=== PATIENT | female | born 1980 | race Caucasian/White ===

== ENCOUNTER 2020-03-05 17:52 | Emergency (ER) | payer BC, OTHER ==
--- NOTE | 2020-03-05 18:26 | ERPHSYRPT ---
- History of Present Illness Source: patient Exam Limitations: no limitations Patient Subjective Stated Complaint: Pt states that she was lifting her 100# grandma and then later she found bloody discharge in her underwear, pt states that she has been cramping since she found out that she was Triage Nursing Assessment: Pt brought self to the ER, vitals wnl, pulses normal, rates cramping at 2/10, skin n/w/d, doesn't appear to be in any distress Physician History: Patient is a 39-year-old female G3, P2 at about 3 weeks gestation. Last menstrual period was February 10. home test which showed positive. Patient has been experiencing some cramping since testing positive but no vaginal bleeding. Today patient was lifting her grandmother and during this physical activity felt a little bit increase in cramping. Then she noticed some light vaginal spotting in her underwear. This progressed to darker blood but not much more bleeding. Patient is here for evaluation. Timing/Duration: today Activites at Onset: physical activity Quality: cramping Onset Location: pelvic pain Pain Radiation: none Severity of Pain-Max: mild Severity of Pain-Current: mild Prior abdominal problems: none Modifying Factors: Improves With: nothing Associated Symptoms: other (vaginal bleeding) Allergies/Adverse Reactions: No Known Drug Allergies Allergy (Verified 03/05/20 18:13) Travel Risk - International Travel Have you traveled outside of the country in past 3 weeks: No - Coronavirus Screening Are you exhibiting any of the following symptoms?: No Close contact with a COVID-19 positive Pt in past 14-21 Days: No - Review of Systems Constitutional: No Fever, No Chills Eyes: No Symptoms Ears, Nose, & Throat: No Symptoms Respiratory: No Cough, No Dyspnea Cardiac: No Chest Pain, No Edema, No Syncope Abdominal/Gastrointestinal: Abdominal Pain, No Nausea, No Vomiting, No Diarrhea Genitourinary Symptoms: Dysuria, , Vaginal Bleeding Musculoskeletal: No Back Pain, No Neck Pain Skin: No Rash Neurological: No Dizziness, No Focal Weakness, No Sensory Changes Psychological: No Symptoms Endocrine: No Symptoms All Other Systems: Reviewed and Negative - Past Medical History Neurological History: No Pertinent History Cardiac History: No Pertinent History Respiratory History: No Pertinent History Endocrine Medical History: No Pertinent History Musculoskeletal History: No Pertinent History GI Medical History: No Pertinent History History: No Pertinent History Female Reproductive Disorders: No Pertinent History - Past Surgical History Past Surgical History: Yes Female Surgical History: Section - Social History Smoking Status: Never smoker Exposure to second hand smoke: No Drug Use: none Patient Lives Alone: No - Female History Hx Last Menstrual Period: 02/11/2020 Hx Now: Yes - Nursing Vital Signs Nursing Vital Signs: Initial Vital Signs Temperature 98.1 F 03/05/20 18:01 Pulse Rate 99 H 03/05/20 18:01 Blood Pressure 141/86 03/05/20 18:01 O2 Sat by Pulse Oximetry 98 03/05/20 18:01 Pain Scale Pain Intensity 6 - Physical Exam General Appearance: no apparent distress, alert Eye Exam: PERRL/EOMI, eyes nml inspection Ears, Nose, Throat Exam: normal ENT inspection, TMs normal, pharynx normal, moist mucous membranes Neck Exam: normal inspection, non-tender, supple, full range of motion Respiratory Exam: normal breath sounds, lungs clear, No respiratory distress Cardiovascular Exam: regular rate/rhythm, normal heart sounds, normal peripheral pulses Gastrointestinal/Abdomen Exam: soft, No tenderness, No mass Pelvic Exam: deferred Back Exam: normal inspection, normal range of motion, No CVA tenderness, No vertebral tenderness Extremity Exam: normal inspection, normal range of motion, pelvis stable Neurologic Exam: alert, oriented x 3, cooperative, brine maker II-XII nml as tested, normal mood/affect, sensation nml, No motor deficits Skin Exam: normal color, warm, dry Lymphatic Exam: No adenopathy SpO2 Interpretation: normal SpO2: 98 - Course Nursing assessment & vital signs reviewed: Yes - Radiology Ultrasound Exam OB Ultrasound: IUP (6wks, NO adnexal mass, some CDS fluid, HR 140's), Other (prelim report by technologist.) Ordered Tests: Active Orders 24 hr Category Date Time Status OB TRANSVAGINAL [US] Routine Exams 03/05/20 22:06 Taken CBC W DIFF Stat Lab 03/05/20 19:00 Completed CMP Stat Lab 03/05/20 19:00 Completed HCG, Quantitative (Inhouse) Stat Lab 03/05/20 19:00 Completed HCG,QUALITATIVE URINE Stat Lab 03/05/20 18:01 Completed UA W/RFX UR CULTURE Stat Lab 03/05/20 18:01 Completed Lab/Rad Data: Laboratory Result Diagrams 03/05/20 19:00 03/05/20 19:00 Laboratory Results 03/05/20 03/05/20 03/05/20 Range/Units 19:00 19:00 19:00 WBC 10.6 H (4.0-10.5) K/mm3 RBC 4.29 (4.1-5.4) M/mm3 Hgb 11.3 L (12.0-16.0) gm/dl Hct 34.8 L (35-47) % MCV 81.1 (78-100) fl MCH 26.3 (26-32) pg MCHC 32.5 (32-36) g/dl RDW 15.8 H (11.5-14.0) % Plt Count 296 (150-450) K/mm3 MPV 10.4 (7.5-11.0) fl Gran % 76.4 H (36.0-66.0) % Eos # (Auto) 0.05 (0-0.5) Absolute Lymphs (auto) 1.75 (1.0-4.6) Absolute Monos (auto) 0.70 (0.0-1.3) Lymphocytes % 16.4 L (24.0-44.0) % Monocytes % 6.6 (0.0-12.0) % Eosinophils % 0.5 (0.00-5.0) % Basophils % 0.1 (0.0-0.4) % Absolute Granulocytes 8.13 H (1.4-6.9) Basophils # 0.01 (0-0.4) Sodium 134 L (137-145) mmol/L Potassium 3.5 (3.5-5.1) mmol/L Chloride 104 (98-107) mmol/L Carbon Dioxide 22 (22-30) mmol/L Anion Gap 12.5 (5-15) MEQ/L BUN 11 (7-17) mg/dL Creatinine 0.67 (0.52-1.04) mg/dL Estimated GFR > 60.0 ML/MIN Glucose 111 H (74-106) mg/dL Calcium 9.1 (8.4-10.2) mg/dL Total Bilirubin 0.10 L (0.2-1.3) mg/dL AST 26 (14-36) U/L ALT 26 (0-35) U/L Alkaline Phosphatase 64 (38-126) U/L Serum Total Protein 7.4 (6.3-8.2) g/dL Albumin 4.0 (3.5-5.0) g/dL Beta HCG, Quant 85017 mIU/ml Urine Color (YELLOW) Urine Appearance (CLEAR) Urine pH (5-6) Ur Specific [place] (1.005-1.025) Urine Protein (Negative) Urine Ketones (NEGATIVE) Urine Blood (0-5) Tung/ul Urine Nitrite (NEGATIVE) Urine Bilirubin (NEGATIVE) Urine Urobilinogen (0-1) mg/dL Ur Leukocyte Esterase (NEGATIVE) Urine WBC (Auto) (0-5) /HPF Urine RBC (Auto) (0-2) /HPF U Epithel Cells (Auto) (FEW) /HPF Urine Bacteria (Auto) (NEGATIVE) /HPF Urine Mucus (Auto) (NEGATIVE) /HPF Urine Culture Reflexed (NO) Urine Glucose (NEGATIVE) mg/dL Urine HCG, Qual (Negative) 03/05/20 03/05/20 Range/Units 18:01 18:01 WBC (4.0-10.5) K/mm3 RBC (4.1-5.4) M/mm3 Hgb (12.0-16.0) gm/dl Hct (35-47) % MCV (78-100) fl MCH (26-32) pg MCHC (32-36) g/dl RDW (11.5-14.0) % Plt Count (150-450) K/mm3 MPV (7.5-11.0) fl Gran % (36.0-66.0) % Eos # (Auto) (0-0.5) Absolute Lymphs (auto) (1.0-4.6) Absolute Monos (auto) (0.0-1.3) Lymphocytes % (24.0-44.0) % Monocytes % (0.0-12.0) % Eosinophils % (0.00-5.0) % Basophils % (0.0-0.4) % Absolute Granulocytes (1.4-6.9) Basophils # (0-0.4) Sodium (137-145) mmol/L Potassium (3.5-5.1) mmol/L Chloride (98-107) mmol/L Carbon Dioxide (22-30) mmol/L Anion Gap (5-15) MEQ/L BUN (7-17) mg/dL Creatinine (0.52-1.04) mg/dL Estimated GFR ML/MIN Glucose (74-106) mg/dL Calcium (8.4-10.2) mg/dL Total Bilirubin (0.2-1.3) mg/dL AST (14-36) U/L ALT (0-35) U/L Alkaline Phosphatase (38-126) U/L Serum Total Protein (6.3-8.2) g/dL Albumin (3.5-5.0) g/dL Beta HCG, Quant mIU/ml Urine Color STRAW (YELLOW) Urine Appearance CLEAR (CLEAR) Urine pH 6.0 (5-6) Ur Specific [place] 1.006 (1.005-1.025) Urine Protein NEGATIVE (Negative) Urine Ketones NEGATIVE (NEGATIVE) Urine Blood SMALL (0-5) Tung/ul Urine Nitrite NEGATIVE (NEGATIVE) Urine Bilirubin NEGATIVE (NEGATIVE) Urine Urobilinogen NEGATIVE (0-1) mg/dL Ur Leukocyte Esterase NEGATIVE (NEGATIVE) Urine WBC (Auto) NONE (0-5) /HPF Urine RBC (Auto) NONE (0-2) /HPF U Epithel Cells (Auto) RARE (FEW) /HPF Urine Bacteria (Auto) NONE (NEGATIVE) /HPF Urine Mucus (Auto) SLIGHT (NEGATIVE) /HPF Urine Culture Reflexed NO (NO) Urine Glucose NEGATIVE (NEGATIVE) mg/dL Urine HCG, Qual POSITIVE (Negative) - Progress Progress: improved Air Movement: good Progress Note: 03/05/20 22:07 No further events in the ER. Beta quant appropriate. Other labs within normal limits. OB ultrasound done which shows IUP 6 weeks gestation, no adnexal mass, some fluid in the cul-de-sac. DC patient with precautions. Blood Culture(s) Obtained: No Antibiotics given: No Counseled pt/family regarding: lab results, diagnosis, need for follow-up, rad results - Departure Departure Disposition: Home Clinical Impression: First trimester bleeding Condition: Stable Critical Care Time: No Referrals: DOCTOR,NO FAMILY [Primary Care Provider] - ABIMBOLA HARPER DO [ACTIVE STAFF] - Instructions: Bleeding With (DC) Additional Instructions: Monitor symptoms closely. Hydration. Rest. Follow-up with OB as soon as possible. Return to ER if worse.
[2020-03-05 18:42] LABS: Appearance CLEAR (CLEAR); Bilirubin NEGATIVE (NEGATIVE); Blood SMALL Ery/ul (0-5); Epithelial Cells RARE /HPF (FEW); Glucose NEGATIVE (NEGATIVE); Ketones NEGATIVE (NEGATIVE); Leukocyte Esterase NEGATIVE (NEGATIVE); Mucus SLIGHT /HPF (NEGATIVE); Nitrite NEGATIVE (NEGATIVE); Protein,Urine Dip NEGATIVE (Negative); Specific Gravity 1.006 (1.005-1.025); Urobilinogen NEGATIVE mg/dL (0-1)
[2020-03-05 19:07] LABS: Absolute Neutrophil Ct (ANC) 8.13 (1.4-6.9); BASOPHIL % 0.1 % (0.0-0.4); Basophil (Absolute #) 0.01 (0-0.4); Eosinophil % 0.5 % (0.00-5.0); Eosinophil (Absolute #) 0.05 (0-0.5); Hematocrit 34.8 % (35-47); Hemoglobin 11.3 gm/dl (12.0-16.0); Lymphocyte (Absolute #) 1.75 (1.0-4.6); Lymphocytes % 16.4 % (24.0-44.0); Mean Cell Volume 81.1 fl (78-100); Mean Corpuscular Hemoglobin 26.3 pg (26-32); Mean Corpuscular Hgb Concent. 32.5 g/dl (32-36); Mean Platelet Volume 10.4 fl (7.5-11.0); Monocytes % 6.6 % (0.0-12.0); Neutrophil % 76.4 % (36.0-66.0); Platelet Count 296 K/mm3 (150-450); Red Blood Count 4.29 M/mm3 (4.1-5.4); Red Cell Distribution Width 15.8 % (11.5-14.0); White Blood Count 10.6 K/mm3 (4.0-10.5)
[2020-03-05 19:18] LABS: ALKALINE PHOSPHATASE 64 U/L (38-126); ANION GAP 12.5 MEQ/L (5-15); BLOOD UREA NITROGEN 11 mg/dL (7-17); CHLORIDE 104 mmol/L (98-107); Calcium 9.1 mg/dL (8.4-10.2); Carbon Dioxide 22 mmol/L (22-30); Creatinine 1 0.67 mg/dL (0.52-1.04); EST GLOMERULAR FILTRATION RATE > 60.0 ML/MIN; Glucose 111 mg/dL (74-106); Potassium 3.5 mmol/L (3.5-5.1); SGOT/AST 26 U/L (14-36); SGPT/ALT 26 U/L (0-35); SODIUM 134 mmol/L (137-145); Total Protein 7.4 g/dL (6.3-8.2)
[2020-03-05 22:23] VITALS: BP 136/88; PULSE 86
[2020-03-06 05:36] VITALS: O2SAT 98
--- NOTE | 2020-03-06 08:44 | XRAY ---
Indication: First trimester bleeding. Two-dimensional transabdominal and transvaginal early OB ultrasound performed. Comparison: None. Uterus anteverted with a single intrauterine gestational sac, pole, and yolk sac. Mean crown-rump length measures 0.75 cm corresponding to 6 weeks 5 days. heart rate 154 BPM. No abnormal subchorionic fluid. Right ovary unremarkable. Left ovary not seen. No suspicious adnexal mass. Tiny cul-de-sac fluid. Impression: Single viable intrauterine measuring 6 weeks 5 days. Expected date confinement is October 24, 2020. No acute findings. Comment: Preliminary report was given.
== END 2020-03-05 22:21 | disposition home or self-care (01) ==
LOC: ED 17:52
DX: O20.9 Hemorrhage in early pregnancy, unspecified (principal); Z3A.01 Less than 8 weeks gestation of pregnancy
CPT/HCPCS: 36415; 76817; 80053; 81001; 84702; 84703; 85025; 99284

== ENCOUNTER 2020-08-31 08:49 | Observation (INO) | payer MEDICAID, OTHER ==
--- NOTE | 2020-08-31 09:50 | XRAY ---
Indication: Normal supervision . Two-dimensional OB ultrasound performed. Comparison: June 06, 2020. Again there is a single viable intrauterine now in cephalic presentation. heart rate 147 bpm. anatomy previously documented. Again posterior placenta without abruption/previa. BPD measures 8.06 cm corresponding to 32 weeks 3 days. HC measures 29.35 cm corresponding to 32 weeks 3 days. AC measures 29.15 cm corresponding to 33 weeks 1 day. FL measures 6.30 cm corresponding to 32 weeks 4 days. Estimated weight 4 lbs. 9 oz., +/-11 ounces. Approximately 49 percentile. EDEN is 12.2 cm. Impression: Again single viable intrauterine with mean gestational age 32 weeks 5 days. Normal progression of . No new/acute findings.
[2020-08-31 11:12] VITALS: BP 123/76; PULSE 84
== END 2020-08-31 11:55 | disposition home or self-care (01) ==
LOC: RAD 08:49 → OB 10:56
PROVIDERS: ADMIT Obstetrics & Gynecology; ATTEND Obstetrics & Gynecology
DX: O24.419 Gestational diabetes mellitus in pregnancy, unspecified control (principal); Z3A.32 32 weeks gestation of pregnancy
CPT/HCPCS: 59025; 76816; G0378

== ENCOUNTER 2020-09-07 08:54 | Observation (INO) | payer MEDICAID, OTHER ==
[2020-09-07 09:19] VITALS: BP 137/65; PULSE 83
== END 2020-09-07 10:00 | disposition home or self-care (01) ==
LOC: OB 08:54
PROVIDERS: ADMIT Obstetrics & Gynecology; ATTEND Obstetrics & Gynecology
DX: O24.419 Gestational diabetes mellitus in pregnancy, unspecified control (principal); Z3A.33 33 weeks gestation of pregnancy
CPT/HCPCS: 59025; G0378

== ENCOUNTER 2020-09-14 08:49 | Observation (INO) | payer OTHER ==
[2020-09-14 09:11] VITALS: BP 123/80; PULSE 93
== END 2020-09-14 09:30 | disposition home or self-care (01) ==
LOC: OB 08:49
PROVIDERS: ADMIT Obstetrics & Gynecology; ATTEND Obstetrics & Gynecology
DX: O24.419 Gestational diabetes mellitus in pregnancy, unspecified control (principal); Z3A.34 34 weeks gestation of pregnancy
CPT/HCPCS: 59025; G0378

== ENCOUNTER 2020-09-19 09:01 | Observation (INO) | payer OTHER ==
--- NOTE | 2020-09-19 10:39 | XRAY ---
Indication: Gestational diabetes. Ultrasound biophysical profile exam performed. There is a single intrauterine patency with heart rate 145 BPM. Four-quadrant EDEN is 18.7 cm. 2 points given for breathing, movements, tone, and qualitative amniotic fluid volume. Impression: Total biophysical profile score is 8 out of 8.
[2020-09-19 11:24] VITALS: BP 119/84; PULSE 85
== END 2020-09-19 11:05 | disposition home or self-care (01) ==
LOC: UNDOADMOB 09:01 → MED SURG 09:01 → UNDODISOB 11:05
PROVIDERS: ADMIT Obstetrics & Gynecology; ATTEND Obstetrics & Gynecology
DX: O24.419 Gestational diabetes mellitus in pregnancy, unspecified control (principal); Z3A.35 35 weeks gestation of pregnancy
CPT/HCPCS: 59025; 76818; G0378

== ENCOUNTER 2020-09-26 10:53 | Observation (INO) | payer OTHER ==
[2020-10-10 13:26] VITALS: BP 131/84; PULSE 73; O2SAT 99
--- NOTE | 2020-10-10 15:20 | XRAY ---
Indication: Routine care. Two-dimensional OB ultrasound performed. Comparison: August 31, 2020. Again there is a single viable intrauterine in cephalic presentation. heart rate 131 bpm. anatomy previously documented. Again posterior placenta without abruption/previa. BPD measures 9.13 cm corresponding to 37 weeks 0 days. HC measures 33.75 cm corresponding to 38 weeks 5 days. AC measures 34.52 cm corresponding to 38 weeks 3 days. FL measures 7.52 cm corresponding to 38 weeks 3 days. Estimated weight 7 lbs. 10 oz., +/- 1 pound 2 ounces. Approximately 67 percentile. EDEN is 12.1 cm. Impression: Again single viable intrauterine with mean gestational age 38 weeks 1 day. Normal progression of . No new/acute findings.
== END 2020-10-10 14:28 | disposition home or self-care (01) ==
LOC: EDSTATUS 10-10 13:05 → MED SURG 10-10 13:07
PROVIDERS: ADMIT Obstetrics & Gynecology; ATTEND Obstetrics & Gynecology
DX: O24.415 Gestational diabetes mellitus in pregnancy, controlled by oral hypoglycemic drugs (principal); Z3A.38 38 weeks gestation of pregnancy
CPT/HCPCS: 59025; 76816; G0378

== ENCOUNTER 2020-09-26 13:52 | Observation (INO) | payer OTHER ==
--- NOTE | 2020-09-26 14:40 | XRAY ---
Indication: Gestational diabetes. Ultrasound biophysical profile exam performed. Comparison: September 19, 2020. There is again a single viable intrauterine in cephalic presentation with heart rates 154 BPM. Four-quadrant EDEN is 10.6 cm. 2 points given for breathing, movements, tone, and qualitative amniotic fluid volume. Impression: Total biophysical profile score remains 8 out of 8.
[2020-09-26 14:54] VITALS: BP 123/76; PULSE 76
== END 2020-09-26 15:30 | disposition home or self-care (01) ==
LOC: MED SURG 13:52
PROVIDERS: ADMIT Obstetrics & Gynecology; ATTEND Obstetrics & Gynecology
DX: O24.419 Gestational diabetes mellitus in pregnancy, unspecified control (principal); Z3A.36 36 weeks gestation of pregnancy
CPT/HCPCS: 59025; 76818; G0378

== ENCOUNTER 2020-10-03 13:34 | Observation (INO) | payer OTHER ==
[2020-10-03 14:08] VITALS: BP 123/76; PULSE 76
--- NOTE | 2020-10-03 14:54 | XRAY ---
Indication: well-being. Ultrasound biophysical profile exam performed. Comparison: September 26, 2020. Again single viable intrauterine with heart rate 150 BPM. Four-quadrant EDEN is 13.7 cm, largest pocket 4.6 cm. 2 points given for breathing, movements, tone, and qualitative amniotic fluid volume. Impression: Total biophysical profile score remains 8 out of 8.
== END 2020-10-03 15:20 | disposition home or self-care (01) ==
LOC: OB 13:34
PROVIDERS: ADMIT Obstetrics & Gynecology; ATTEND Obstetrics & Gynecology
DX: O24.419 Gestational diabetes mellitus in pregnancy, unspecified control (principal); Z3A.37 37 weeks gestation of pregnancy
CPT/HCPCS: 59025; 76818; G0378

== ENCOUNTER 2020-10-16 05:03 | Inpatient (IN) | payer OTHER ==
[~2020-10-16 05:03] MED LIST: CEFAZOLIN 2 GM-D5W BAG** 2 GM/50 ML ML IV SCH; CLARITIN 10 MG PO PRN; LANSINOH 40 GM TOP PRN; PERCOCET TABLET 5/325MG PO PRN; TYLENOL EXTRA STRENGTH 500 MG PO PRN; Zofran 4 MG/2 ML VIAL IV PRN
[2020-10-16 05:51] LABS: Amphetamine,Urine NEGATIVE (NEGATIVE); Barbiturate,Urine NEGATIVE (NEGATIVE); Benzodiazepine,Urine NEGATIVE (NEGATIVE); Cocaine,Urine NEGATIVE (NEGATIVE); Methadone,Urine NEGATIVE (NEGATIVE); Opiate,Urine NEGATIVE (NEGATIVE); PCP,Urine NEGATIVE (NEGATIVE); THC,Urine NEGATIVE (NEGATIVE)
[2020-10-16] MEDS ORDERED: OMNIPEN 2 GM ONE (06:18)
[2020-10-16] MEDS ORDERED: Sodium Chloride 100ML MINI-BAG PLUS 100 ML IV ONE (06:19)
[2020-10-16] MEDS: Lactated Ringers 1,000 ML IV ONE ×2 (06:23→06:36)
[2020-10-16 06:38] LABS: Mean Cell Volume 79.5 fl (78-100); Mean Corpuscular Hgb Concent. 31.4 g/dl (32-36); Mean Platelet Volume 12.2 fl (7.5-11.0); Platelet Count 229 K/mm3 (150-450); Red Cell Distribution Width 15.4 % (11.5-14.0); White Blood Count 8.1 K/mm3 (4.0-10.5)
[2020-10-16] MEDS ORDERED: Pepcid 20 MG VIAL IV SCH (07:00)
[2020-10-16] MEDS ORDERED: Reglan 10 MG/2 ML IV SCH (07:00)
[2020-10-16] MEDS ORDERED: SOD CITRATE-CITRIC ACID SOLN PO SCH (07:00)
[2020-10-16 07:05] LABS: INR 0.9 (0.8-3.0); PROTIME 10.6 SECONDS (9.4-12.5)
[2020-10-16 07:08] LABS: PTT 25.3 SECONDS (25.1-36.5)
[2020-10-16 07:42] LABS: ABO TYPING A; RH TYPING POSITIVE
[2020-10-16 07:43] LABS: Antibody Screen POSITIVE (NEGATIVE)
[2020-10-16] MEDS ORDERED: Astramorph-Pf 5 MG/10 ML ONE (08:31)
[2020-10-16] MEDS ORDERED: Pitocin 10 UNITS/ML ONE (08:54)
[2020-10-16] MEDS ORDERED: PHENYLEPHRINE HCL ONE (08:54)
[2020-10-16] MEDS ORDERED: Zofran 4 MG/2 ML VIAL ONE (08:55)
[2020-10-16] MEDS ORDERED: Naropin 0.5% 30 ML VIAL ONE (08:55)
[2020-10-16] MEDS ORDERED: TORAdol 30 mg Injection ONE (08:55)
[2020-10-16] MEDS ORDERED: Decadron 4 MG INJ ONE (08:55)
[2020-10-16] MEDS ORDERED: Adacel Vial IM ONE (09:00)
[2020-10-16] MEDS ORDERED: EPINEPHRINE 1MG/ML AMP ONE (09:17)
[2020-10-16 12:47] LABS: Appearance CLEAR (CLEAR); Bilirubin NEGATIVE (NEGATIVE); Blood NEGATIVE Ery/ul (0-5); Glucose NEGATIVE (NEGATIVE); Ketones NEGATIVE (NEGATIVE); Leukocyte Esterase NEGATIVE (NEGATIVE); Nitrite NEGATIVE (NEGATIVE); Protein,Urine Dip NEGATIVE (Negative); Specific Gravity 1.012 (1.005-1.025); Urobilinogen NEGATIVE mg/dL (0-1)
[2020-10-16 13:38] LABS: Bacteria NONE SEEN /HPF (NEGATIVE)
[2020-10-16] MEDS: BENADRYL 50 MG/ML IV PRN (14:05)
[2020-10-16] MEDS ORDERED: CEFAZOLIN 2 GM-D5W BAG** 2 GM/50 ML ML IV ONE (16:00)
[2020-10-16 16:33] LABS: Slide Review YES
[2020-10-16] MEDS: Dextrose 5%-Lr IV Solution 1000 ML 1,000 ML IV SCH ×3 (17:46→20:51)
[2020-10-16] MEDS ORDERED: CORTISONE 1% CREAM TP PRN (21:06)
[2020-10-16] MEDS ORDERED: Anucort-HC SUPPOSITORY PR PRN (21:06)
[2020-10-16] MEDS ORDERED: Mylicon 80MG PO PRN (21:06)
[2020-10-16] MEDS ORDERED: Dulcolax 10 MG SUPP PR PRN (21:06)
[2020-10-16] MEDS: Colace 100 MG PO SCH (22:15)
[2020-10-16] MEDS: SYNTHROID 25 MCG PO SCH (22:15)
[2020-10-17] MEDS: Dextrose 5%-Lr IV Solution 1000 ML 1,000 ML IV SCH ×3 (02:02→20:53)
[2020-10-17] MEDS: BENADRYL 50 MG/ML IV PRN (02:21)
[2020-10-17] MEDS: PERCOCET TABLET 5/325MG PO PRN ×2 (04:53→08:57)
[2020-10-17 05:09] LABS: Hematocrit 29.4 % (35-47); Mean Cell Volume 81.2 fl (78-100); Mean Corpuscular Hemoglobin 24.9 pg (26-32); Mean Corpuscular Hgb Concent. 30.6 g/dl (32-36); Mean Platelet Volume 12.2 fl (7.5-11.0); Platelet Count 196 K/mm3 (150-450); Red Blood Count 3.62 M/mm3 (4.1-5.4); Red Cell Distribution Width 15.2 % (11.5-14.0); White Blood Count 13.3 K/mm3 (4.0-10.5)
[2020-10-17 06:56] LABS: Basophil 3 % (0.0-1.0); Lymphocytes 12 % (24-44); Monocyte 3 % (0.0-12.0); Neutrophils 82 % (36.0-66.0); Total Cells Counted 100
[2020-10-17 06:58] LABS: Platelet Estimate NORMAL (NORMAL)
--- NOTE | 2020-10-17 08:12 | PCM.NOTE ---
Date and Time: 10/17/20809 Subjective Assessment: POD 1 SP CSECTION PT RESTING IN BED AND DOING WELL AMBULATING AND TOLERATING DIET. VSS AFEBRILE ABD; SOFT INCISION C/D/INTACT UTERUS; FIRM LOCHIA; MILD HGB; 9 A/P SP CSECTION POD 1 DOING WELL TODAY ANTICIPATE DISCHARGE HOME TOMORROW OBJECTIVE DATA Vital Signs: Vital Signs - 24 hr Temp Pulse Resp BP Pulse Ox 10/17/20 05:32 57 L 17 134/81 98 10/17/20 04:00 98.6 F 59 L 17 153/79 98 10/17/20 00:00 98.8 F 66 17 131/77 96 10/16/20 20:00 98.7 F 67 17 135/84 98 10/16/20 18:58 98 10/16/20 18:00 98 10/16/20 17:00 99 10/16/20 16:00 64 20 131/70 97 10/16/20 15:00 98 10/16/20 14:00 98 10/16/20 13:00 99 10/16/20 12:00 98 10/16/20 11:45 54 L 20 131/75 97 10/16/20 11:15 50 L 22 136/77 99 10/16/20 11:00 48 L 20 130/83 98 10/16/20 10:30 97.4 F 50 L 20 122/58 99 10/16/20 10:15 48 L 20 128/76 98 Pain Assessment - Last Documented Pain Intensity [Anterior] 8 Pain Intensity 8 Pain Scale Used FLACC Intake and Output: Intake & Output 10/14/20 10/15/20 10/16/20 10/17/20 11:59 11:59 11:59 11:59 Intake Total 2769 Output Total 1800 Balance 969 Weight 86.636 kg Lab Results: Lab Results-Last 24 Hours 10/16/20 10/16/20 10/17/20 Range/Units 06:00 08:47 04:49 WBC 13.3 H (4.0-10.5) K/mm3 RBC 3.62 L (4.1-5.4) M/mm3 Hgb 9.0 L (12.0-16.0) gm/dl Hct 29.4 L (35-47) % MCV 81.2 (78-100) fl MCH 24.9 L (26-32) pg MCHC 30.6 L (32-36) g/dl RDW 15.2 H (11.5-14.0) % Plt Count 196 (150-450) K/mm3 MPV 12.2 H (7.5-11.0) fl Segmented Neutrophils 82 H (36.0-66.0) % Lymphocytes (Manual) 12 L (24-44) % Monocytes (Manual) 3 (0.0-12.0) % Basophils (Manual) 3 H (0.0-1.0) % Platelet Estimate NORMAL (NORMAL) RBC Morphology NORMAL Urine Color YELLOW (YELLOW) Urine Appearance CLEAR (CLEAR) Urine pH 6.0 (5-6) Ur Specific [place] 1.012 (1.005-1.025) Urine Protein NEGATIVE (Negative) Urine Ketones NEGATIVE (NEGATIVE) Urine Blood NEGATIVE (0-5) Tung/ul Urine Nitrite NEGATIVE (NEGATIVE) Urine Bilirubin NEGATIVE (NEGATIVE) Urine Urobilinogen NEGATIVE (0-1) mg/dL Ur Leukocyte Esterase NEGATIVE (NEGATIVE) Urine WBC (Auto) NONE (0-5) /HPF Urine RBC (Auto) NONE (0-2) /HPF U Epithel Cells (Auto) NONE (FEW) /HPF Urine Bacteria (Auto) NONE SEEN (NEGATIVE) /HPF Urine Glucose NEGATIVE (NEGATIVE) mg/dL Slides for Path Review YES Multi-Disciplinary Progress Notes: Multi-Disciplinary Progress Notes 10/16/20 09:02 (created 10/16/20 09:36) Respiratory Note by Chani Ash Baby delivered via and cried instantly. Brought over to the warmer, stimulated and dried off. Baby pinked up HR 170s at 1 minute and 170s at 5 minute sina. Initialized on 10/16/20 09:36 - END OF NOTE Assessment/Plan (1) Status post repeat low transverse section Current Visit: Yes Status: Acute Code(s): Z98.891 - HISTORY OF UTERINE SCAR FROM PREVIOUS SURGERY
[2020-10-17] MEDS: Colace 100 MG PO SCH ×2 (09:01→21:56)
--- NOTE | 2020-10-17 09:29 | OP ---
SURGERY DATE: 10/16/2020 SURGERY TIME: 834 PREOPERATIVE DIAGNOSIS: 1. INTRAUTERINE AT 39 WEEKS GESTATION WITH PREVIOUS SECTION X 2 WITH GESTATIONAL DIABETES. 2. MULTIPARITY DESIRING TUBAL STERILIZATION. POSTOPERATIVE DIAGNOSIS: 1. INTRAUTERINE AT 39 WEEKS GESTATION WITH PREVIOUS SECTION X 2 WITH GESTATIONAL DIABETES. 2. MULTIPARITY DESIRING TUBAL STERILIZATION. PROCEDURE: 1. Repeat section, low flap transverse uterine incision, Pfannenstiel skin incision, bilateral tubal sterilization. SURGEON: Dr. Leon Harris. LAP MAKER: Teresa Chilel, information technology advisor. ANESTHESIA: Spinal. ESTIMATED BLOOD LOSS: 600 cc. COMPLICATIONS: None. FINDINGS: The risks, benefits, indications, and alternatives of the procedure were reviewed with the patient prior to the procedure. Patient understood the risk of infection, bleeding, bowel injury, bladder injury, ureteral injury, pelvic infection, thromboembolic disorder, possible future and ectopic that can be associated with this procedure. However, desires to have this procedure as a possible means to alleviate her current medical condition. All the control methods were discussed with the patient prior to the procedure. DESCRIPTION OF PROCEDURE: At this point, the patient was taken to the operating room where her spinal anesthesia was found to be adequate. She was then prepared and draped in the normal sterile fashion in the dorsal supine position with leftward tilt. A Pfannenstiel skin incision was made with the scalpel and carried through to the underlying layers of fascia with a Bovie. The fascia was then incised in the midline and the incision extended laterally with the Longoria scissors. The superior aspect of the fascial incision was then grasped with the Neel clamps, elevated, and the underlying rectus muscles dissected off bluntly. Attention was then turned to the inferior aspect of this incision which in a similar fashion was grasped, tented up with the Neel clamps, and the rectus muscles were dissected off bluntly. The rectus muscles were then in the midline. The peritoneum identified, tented up, and entered sharply with the Metzenbaum scissors. The peritoneal incision was then extended superiorly and inferiorly with good visualization of the bladder. The bladder blade was then inserted and the vesicouterine identified, grasped with the pickups, and entered sharply with the Metzenbaum scissors. The incision was then extended laterally and the bladder flap created digitally. The bladder blade was then reinserted and the lower uterine segment incised in the transverse fashion with a scalpel. The uterine incision was then extended laterally with the bandage scissors. The bladder blade was then removed and the infant's head was delivered atraumatically. Nose and mouth were suctioned with the bulb suction and the cord clamped and cut. The was then handed off to the awaiting nurses. The placenta was then removed manually. The uterus was exteriorized and cleared of all clots and debris. The uterine incision was repaired with 1-0 chromic in a running locked fashion. A second layer of the same suture was used to obtain excellent hemostasis. From this point, the patient's left fallopian tube was identified and was grasped with a Dipak clamp. At this point, the tube was grasped approximately 4 cm from the corneal region. A 3 cm segment of tube was then ligated with a free tie of plain gut and excised. Good hemostasis was noted and the tube was then coagulated with the bipolar on either ends of the cut surface. The same procedure was performed on the right fallopian tube where it was ligated and a 3 cm segment excised in a similar fashion. Excellent hemostasis was noted. From this point, the uterus was then returned to the abdomen. The gutters were free of all clots and the peritoneal muscle closed in an interrupted fashion using 2-0 chromic suture. The fascia was reapproximated with 0 Vicryl in running fashion. The subcutaneous layer was closed with 3-0 Vicryl suture and the skin was closed with absorbable norma called INSORB. The patient tolerated the procedure well. Sponge, lap, needle, and instrument counts were correct X 2. The patient was then taken to the recovery room in stable condition. The patient delivered a live baby girl at 0902. 's were 8 at 1 minute, 9 at 5 minutes, and the weight of the baby was 7 pounds, 8 ounces.
[2020-10-17] MEDS ORDERED: FERREX 150 PO SCH (10:00)
[2020-10-17] MEDS: MOTRIN 400 MG PO PRN ×2 (11:54→21:57)
[2020-10-17] MEDS: NORCO 5/325 MG PO PRN ×2 (14:16→18:15)
--- NOTE | 2020-10-17 16:38 | PCM.DS ---
Discharge Summary Date of Admission: 10/16/20 05:04 Admitting Physician: ABIMBOLA HARPER DO Consults: Consults on Case 10/16/20 03:14 Notify Anesthesia Provider ROUTINE Notify Physician OF ADMISSION Primary Care Provider: NO FAMILY DOCTOR Allergies Allergies No Known Drug Allergies Allergy (Verified 10/16/20 05:36) Hospital Summary - Hospital Course Hospital Course: PT ADMITTED ON OCTOBER 16 FOR UNDERGOING REPEAT CSECTION AND BL TUBAL STERILZATION AND UNDERWENT PROCEDURE WITHOUT COMPLICATION. DURING POSTOP PERIOD DID WELL WAS ABLE TO AMBULATE AND TOLERATE DIET. PT ADVISED TO FU IN OFFICE IN 2 WKS FOR ICISION CHECK. ALL QUESTIONS ANSWERED TO HER SATISFACTION. - Vitals & Intake/Output Vital Signs: Vital Signs Temperature 98.7 F 10/17/20 08:00 Pulse Rate 68 10/17/20 08:00 Respiratory Rate 18 10/17/20 08:00 Blood Pressure 142/68 10/17/20 08:00 O2 Sat by Pulse Oximetry 98 10/17/20 08:00 Intake & Output: Intake & Output 10/15/20 10/16/20 10/17/20 10/18/20 11:59 11:59 11:59 11:59 Intake Total 2769 Output Total 1800 Balance 969 Weight 86.636 kg - Lab Result Diagrams: 10/17/20 04:49 Lab Results-Last 24 Hrs: Lab Results-Last 24 Hours 10/16/20 10/17/20 Range/Units 06:45 04:49 WBC 13.3 H (4.0-10.5) K/mm3 RBC 3.62 L (4.1-5.4) M/mm3 Hgb 9.0 L (12.0-16.0) gm/dl Hct 29.4 L (35-47) % MCV 81.2 (78-100) fl MCH 24.9 L (26-32) pg MCHC 30.6 L (32-36) g/dl RDW 15.2 H (11.5-14.0) % Plt Count 196 (150-450) K/mm3 MPV 12.2 H (7.5-11.0) fl Segmented Neutrophils 82 H (36.0-66.0) % Lymphocytes (Manual) 12 L (24-44) % Monocytes (Manual) 3 (0.0-12.0) % Basophils (Manual) 3 H (0.0-1.0) % Platelet Estimate NORMAL (NORMAL) RBC Morphology NORMAL Hep Bs Antigen Negative (Negative) Micro Results-Entire Visit: Microbiology 10/16/20 08:47 Urine Culture - Preliminary Urine, Catheterized NO GROWTH TO DATE - Procedures and Test Procedures and Tests throughout Hospitalization: Therapy Orders & Screens 10/16/20 09:02 Standby STAT Comment: Diagnosis: Post Op Final Diagnosis/Problem List - Final Discharge Diagnosis/Problem (1) Status post repeat low transverse section Current Visit: Yes Status: Acute Code(s): Z98.891 - HISTORY OF UTERINE SCAR FROM PREVIOUS SURGERY (2) delivery delivered Current Visit: Yes Status: Acute Code(s): O82 - ENCOUNTER FOR DELIVERY WITHOUT INDICATION - Discharge Disposition: Home, Self-Care Condition: Stable Prescriptions: New Hydrocodone/Acetaminophen [Hydrocodone-Acetamin 5-325 mg] 1 tab PO Q6HPRN PRN #26 tablet MDD 4 PRN Reason: Pain No Action Levothyroxine Sodium [Euthyrox] 25 mcg PO QHS Instructions: Movement, Wound Care, What to Watch for After You Have a Baby Follow up with: DOCTOR,NO FAMILY [Primary Care Provider] - ABIMBOLA HARPER DO [ACTIVE STAFF] - 2 weeks (KEEP INCISION CLEAN AND DRY NO HEAVY LIFTING NO INTERCOURSE)
[2020-10-17] MEDS: SYNTHROID 25 MCG PO SCH (21:57)
[2020-10-18] MEDS: NORCO 5/325 MG PO PRN ×2 (00:29→08:21)
[2020-10-18] MEDS: MOTRIN 400 MG PO PRN (04:19)
[2020-10-18 08:25] VITALS: BP 142/70; PULSE 63; O2SAT 98
== END 2020-10-18 10:00 | disposition home or self-care (01) | DRG 785 ==
LOC: OB 05:03 → OBSVTOIN 05:04 → MED SURG 10-17 21:45
PROVIDERS: ADMIT Obstetrics & Gynecology; ATTEND Obstetrics & Gynecology
PROC: 10D00Z1 Extraction of Products of Conception, Low, Open Approach (ICD-10-PCS; principal; 2020-10-16)
PROC: 0UB70ZZ Excision of Bilateral Fallopian Tubes, Open Approach (ICD-10-PCS; 2020-10-16)
DX: O34.211 Maternal care for low transverse scar from previous cesarean delivery (principal); O24.429 Gestational diabetes mellitus in childbirth, unspecified control; Z3A.39 39 weeks gestation of pregnancy; Z37.0 Single live birth; Z30.2 Encounter for sterilization
CPT/HCPCS: 36415; 64488; 76937; 76942; 80307; 81001; 85025; 85027; 85610; 85730; 86850; 86870; 86900; 86901; 87086; 87340; 90471; 90715; 94799; J0171; J0290; J0690; J1100; J1200; J1885; J2274; J2370; J2405; J2590; J2795; L0625; A9270-GY; G0378